=== PATIENT | male | born 1955 | race Caucasian/White ===

== ENCOUNTER 2020-04-14 11:40 | Outpatient (REF) | payer MEDICARE, MEDICAID, SELFPAY ==
--- NOTE | 2020-04-14 10:15 | LIPBX_PTH ---
PATIENT: Travis Alexis LOC: [facility] U#:[id number] AGE/SX: 64/M ROOM: RE04/14/[address]: Javad Dallas MD : 1955 BED: DIS: 04/14/2020 SPEC #: [id number] RECD: 04/14/20 17:37 STATUS: NASRIN REQ #: [id number] DANISH: 04/14/20 10:[address]: Javad Dallas DEPT: Surgical Specimen RECD BY: Sarah Chen ENTERED: 04/14/20 17:37 SP TYPE: LIPBX OTHR DR: Christian Choudhury Tissues: 1 - LIP BIOPSY/RESECTION Procedures: SKIN LEVEL 4 Comments: [id number]
== END 2020-04-14 12:00 ==
LOC: LBN 11:40
PROVIDERS: PCP Family Medicine; Visit Provider Otolaryngology
DX: C00.1 Malignant neoplasm of external lower lip (principal); Z87.891 Personal history of nicotine dependence
CPT/HCPCS: 88305

== ENCOUNTER 2020-04-25 03:21 | Outpatient (CLI) | payer MEDICARE, MEDICAID, SELFPAY ==
[2020-04-26 11:14] LABS: SARS-CoV-2 RNA Not Detected (NotDetected); SARS-CoV-2 RNA Source Nasal/Nares
== END 2020-04-25 03:41 ==
PROVIDERS: PCP Family Medicine; Visit Provider Otolaryngology
DX: Z11.59 Encounter for screening for other viral diseases (principal); Z01.818 Encounter for other preprocedural examination
CPT/HCPCS: U0003

== ENCOUNTER 2020-04-28 05:55 | Day surgery (SDC) | payer MEDICARE, MEDICAID, SELFPAY ==
[2020-04-28 05:59] VITALS: BP 115/61; PULSE 71; RESP 20; TEMP 36.3; O2SAT 98
--- NOTE | 2020-04-28 07:51 | LIPBX_PTH ---
PATIENT: Travis Alexis LOC: [facility] U#:[id number] AGE/SX: 64/M ROOM: RE04/28/[address]: Javad Dallas MD : 1955 BED: DIS: 04/28/2020 SPEC #: [id number] RECD: 04/28/20 12:51 STATUS: NASRIN REQ #: [id number] DANISH: 04/28/20 07:[address]: Javad Dallas DEPT: Surgical Specimen RECD BY: Sarah Chen ENTERED: 04/28/20 12:51 SP TYPE: LIPBX OTHR DR: Avi Pepper Tissues: 1 - LIP BIOPSY/RESECTION Procedures: SKIN LEVEL 4 Comments: [id number]
[2020-04-28] MEDS: Bacitracin 30 GM TUBE (07:57)
--- NOTE | 2020-04-28 08:22 | PDOC.DSDIS_ITS ---
Discharge Plan Disposition Patient Disposition: HOME Condition: Stable Discharge Details Attending Provider: Javad Dallas Primary Care Provider: Avi Pepper [place] Meds and New Rx's Prescriptions: No Action losartan 50 mg Tablet 50 mg PO DAILY RF: 0 hydrocodone-acetaminophen 5-325 mg Tablet 2 tab PO Q6H PRNRF: 0 levothyroxine 75 mcg Tablet 75 mcg PO DAILY RF: 0 oxycodone-acetaminophen 10-325 mg Tablet 1 tab PO Q6H PRNRF: 0 amlodipine 10 mg Tablet 10 mg PO DAILY RF: 0 trazodone 150 mg Tablet 150 mg PO QHS RF: 0 metformin 1,000 mg Tablet 1,000 mg PO BID RF: 0 fluticasone propion-salmeterol [Advair Diskus] 500-50 mcg/dose Blister With Device 1 inh INHALATION BID RF: 0 albuterol sulfate [Ventolin HFA] 90 mcg/actuation Hfa Aerosol Inhaler 1 puff INHALATION Q4H PRN PRNRF: 0 ondansetron 4 mg Tablet,Disintegrating 4 mg PO Q8H RF: 0 insulin aspart U-100 [Novolog Flexpen U-100 Insulin] 100 unit/mL (3 mL) Insulin Pen 18 unit SUBCUT DIRECTED RF: 0 metoprolol tartrate 25 mg Tablet 25 mg PO BID RF: 0 nitrofurantoin monohyd/m-cryst 100 mg Capsule 100 mg PO HS RF: 0 sildenafil (pulm.hypertension) 20 mg Tablet 20 mg PO HS RF: 0 Basaglar KwikPen U-100 Insulin 100 unit/mL (3 mL) Insulin Pen See Rx Instructions .ROUTE .COMPLEX RF: 0 Narcan 4 mg/actuation Skandia,Non-Aerosol 4 mg INTRANASAL Q2-3M PRNRF: 0 Discharge Instructions Additional Instructions: apply bacitracin ointment 3 x per day for 3 days then stop. Keep wound dry for 48 hours then may get wet. Avoid wide mouth opening. Call with any signs of infection or concerns. My cell phone is [phone]. Referrals: Javad Dallas MD [ [facility] STAFF PHYSICIAN] - (1 week for suture removal) Shower/Bathe:: 48 hours
--- NOTE | 2020-04-28 16:56 | W.PM.OP ---
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 Options were explained to the patient regarding further management. He elected to undergo the above procedure. Consent was filled out and signed prior to surgery. Findings: Squamous cell carcinoma, left lower lip, completely excised to visual margins Procedure Description: The patient was positioned in a supine position and prepped and draped in appropriate fashion. 1% lidocaine with 1/100,000 epinephrine was injected around the lesion after outlining the planned 2 cm wedge excision of the left lower lip. Vermilion border was marked. Following this, a 15 blade was used to incise the skin, subcutaneous tissues, and lip down into a wedge excision extending to the mental crease. Visual margins of approximately 3 mm were taken on either side of the lesion. Once the lesion had been fully excised, relative hemostasis was achieved using electrocautery set on 15 W coagulation and 15 W cut. The wound was then closed with a deep closure of four-point 0 Monocryl's, and then five-point 0 nylon's were used in interrupted fashion to approximate the skin and outer lip. The inner lip was closed with inverted interrupted four-point 0 chromic sutures. Cosmesis appeared excellent. There was no bleeding. Bacitracin was applied and the patient was taken to the recovery room in stable condition. I was present throughout the entire case.
== END 2020-04-28 08:53 | disposition home or self-care (01) ==
PROVIDERS: PCP Family Medicine; Visit Provider Otolaryngology
PROC: 0HB1XZZ Excision of Face Skin, External Approach (ICD-10-PCS; CPT 40510; principal; 2020-04-28 07:30)
DX: C00.1 Malignant neoplasm of external lower lip (principal); E03.9 Hypothyroidism, unspecified; E11.21 Type 2 diabetes mellitus with diabetic nephropathy
CPT/HCPCS: 40510; 88305

== ENCOUNTER 2021-02-15 16:11 | Outpatient (REF) | payer MEDICARE, MEDICAID, SELFPAY ==
--- NOTE | 2021-02-15 15:30 | LIPBX_PTH ---
PATIENT: Travis Alexis LOC: [facility] U#:[id number] AGE/SX: 65/M ROOM: RE02/15/[address]: Javad Dallas MD : 1955 BED: DIS: 02/15/2021 SPEC #: [id number] RECD: 02/15/21 18:25 STATUS: NASRIN REQ #: [id number] DANISH: 02/15/21 15:[address]: Javad Dallas DEPT: Surgical Specimen RECD BY: Sarah Chen ENTERED: 02/15/21 18:26 SP TYPE: LIPBX OTHR DR: Avi Pepper Tissues: 1 - LIP BIOPSY/RESECTION Procedures: GROSS AND MICRO LEVEL 4 Comments: [id number]
== END 2021-02-15 16:12 | disposition home or self-care (01) ==
LOC: LBN 16:11
PROVIDERS: PCP Family Medicine; Visit Provider Otolaryngology
DX: L90.5 Scar conditions and fibrosis of skin (principal); Z85.818 Personal history of malignant neoplasm of other sites of lip, oral cavity, and pharynx; F17.210 Nicotine dependence, cigarettes, uncomplicated
CPT/HCPCS: 88305

== ENCOUNTER 2021-12-25 15:07 | Outpatient (REF) | payer MEDICARE, MEDICAID, SELFPAY ==
--- NOTE | 2021-12-25 13:20 | LIPBX_PTH ---
PATIENT: Travis Alexis LOC: [facility] U#:[id number] AGE/SX: 66/M ROOM: RE12/25/[address]: Javad Dallas MD : 1955 BED: DIS: 12/25/2021 SPEC #: [id number] RECD: 12/25/21 18:33 STATUS: [place]RIN [place] #: [id number] DANISH: 12/25/21 13:[address]: Javad Dallas DEPT: Surgical Specimen RECD BY: Sarah Chen ENTERED: 12/25/21 18:33 SP TYPE: LIPBX OTHR DR: Avi Pepper Tissues: 1 - LIP BIOPSY/RESECTION Procedures: GROSS AND MICRO LEVEL 4 IMMUNOPEROXIDASE STAIN Comments: [id number]
== END 2021-12-25 15:08 | disposition home or self-care (01) ==
LOC: LBN 15:07
PROVIDERS: PCP Family Medicine; Visit Provider Otolaryngology
DX: R22.9 Localized swelling, mass and lump, unspecified (principal); Z85.828 Personal history of other malignant neoplasm of skin
CPT/HCPCS: 88305; 88361